=== PATIENT | female | born 1970 | race Caucasian/White ===

== ENCOUNTER 2022-11-22 09:07 | Outpatient (CLI) | payer OTHER ==
[2022-11-22] MEDS ORDERED: GADOTERATE MEGLUMINE 7.5 MMOL/15 ML VIAL IV ONE (09:36)
== END 2022-11-22 20:54 | disposition home or self-care (01) ==
LOC: SMI 09:07
PROVIDERS: ATTEND Psychiatry & Neurology Neurology with Special Qualifications in Child Neurology
DX: R42 Dizziness and giddiness (principal)
CPT/HCPCS: 70553; 93880; A9575